=== PATIENT | female | born 1970 | race Caucasian/White ===

== ENCOUNTER 2023-12-18 14:58 | Outpatient (OUT) | payer OTHER, MEDICARE, SELFPAY ==
--- NOTE | 2023-12-18 | XR_ITS ---
The [address] [address] Patient Name: BOB DOLL MRN: [id number] date: 1970 Sex: F Assigned Patient Location: Current Patient Location: Accession/Order Number: [id number] Exam Date: 12/18/2023 15:10 Report Date: 12/19/2023 07:21 At the request of: PAYTON PASCUAL Procedure: XR foot LT min 3V PROCEDURE: XR foot LT min 3V COMPARISON: 11/10/2021 HISTORY: LEFT FOOT PAIN FINDINGS: BONES:No acute fracture or dislocation. Remote osteotomy and screw placement at of the first metatarsal is stable with no evidence of movement. Enthesopathic spurring of the calcaneus at the Achilles and plantar insertions. SOFT TISSUES:Negative. No visible soft tissue swelling. EFFUSION:None visible. OTHER: Negative. XR/XR foot LT min 3V IMPRESSION: No acute abnormality Electronically authenticated by: DIANA SIMEON Date: 12/19/2023 07:21
== END 2023-12-18 14:59 | disposition home or self-care (01) ==
PROVIDERS: Visit Provider Podiatrist Foot & Ankle Surgery
DX: M79.672 Pain in left foot (principal)
CPT/HCPCS: 73630

== ENCOUNTER 2024-12-01 13:58 | Outpatient (OUT) | payer OTHER, MEDICARE, SELFPAY ==
--- NOTE | 2024-12-01 | XR_ITS ---
The [place] [address] Patient Name: BOB DOLL MRN: [id number] date: 1970 Sex: F Assigned Patient Location: Current Patient Location: Accession/Order Number: [id number] Exam Date: 12/01/2024 17:08 Report Date: 12/01/2024 17:09 At the request of: PAYTON PASCUAL DPMona Procedure: XR foot RT min 3V RIGHT FOOT - 3 views CLINICAL HISTORY: Pain plantar aspect first MPJ region for 6 months. Pain plantar aspect distal second and third metatarsals. No known injury. COMPARISON: None FINDINGS: No focal soft tissue abnormality. No acute bony process is seen mild degenerative changes of the IP joints. No bony erosions. XR/XR foot RT min 3V IMPRESSION: MILD DEGENERATIVE CHANGES OF THE RIGHT FOOT WITHOUT ACUTE BONY PROCESS. Impression dictated by: Rene Olivas Jr., DScarlettOScarlett12/01/2024 5:09 PM Dictation Location: [place] [address] Electronically authenticated by: [id number] Y Date: 12/01/2024 17:09
== END 2024-12-01 13:59 | disposition home or self-care (01) ==
LOC: EC 13:58
PROVIDERS: Visit Provider Podiatrist Foot & Ankle Surgery
DX: M79.671 Pain in right foot (principal)
CPT/HCPCS: 73630